=== PATIENT | female | born 1960 | race Caucasian/White ===

== ENCOUNTER 2016-12-14 21:14 | Emergency (ER) ==
[2016-12-14 21:21] VITALS: BP 144/83; TEMP 102.7; BMI 28.9
--- NOTE | 2016-12-14 21:26 | ED.PDOC ---
General ED Provider: Dr. NORIS CANTRELL Chief Complaint: Abdominal Pain Stated Complaint: Been hurting in the right side of the belly, has h/o kidney stones in the past. Time Seen by Physician: 21:25 Mode of Arrival: Walk-In Information Source: Patient, Family Primary Care Provider: NORIS CANTRELL[facility] Nursing and Triage Documentation Reviewed and Agree: Yes GI Complaint Exam - Abdominal Pain Complaint/Exam Onset: Gradual Symptoms Are: Still present Timing: Constant Initial Severity: Severe Current Severity: Severe Location of Pain: RLQ Radiates To: Reports: Flank Character: Reports: Aching, Throbbing Aggravating: Reports: Movement Alleviating: Reports: None Associated Signs and Symptoms: Reports: Back pain, Dysuria, Urinary frequency, Nausea. Denies: Diaphoresis, Fever, Cough, Chest pain, Dizziness, Constipation , Blood in stool, Decreased urine output, Decreased appetite, Vaginal bleeding, Vaginal discharge, Vomiting, Diarrhea, Sore throat, Decreased activity Related History: Reports: Similar episode AAA Risk Factors: Reports: None Cardiac Risk Factors: Reports: None Ectopic Risk Factors: Reports: None Ovarian Torsion Risk Factors: Reports: None Surgical Obstruction Risk Factors: Reports: None Related Surgical History: Reports: None Patient Rh Status: Unknown Abdominal Findings: Present: CVA Tenderness. Absent: Pulsatile mass, Abdominal distention, Unequal femoral pulses, Rebound tenderness Differential Diagnoses: Renal Colic, Ureteral Stone, UTI Review of Systems - Review Of Systems Constitutional: Reports: No symptoms Eyes: Reports: No symptoms Ears, Nose, Mouth, Throat: Reports: No symptoms Respiratory: Reports: No symptoms Cardiac: Reports: No symptoms GI: Reports: Abdominal pain : Reports: Dysuria, Frequency Musculoskeletal: Reports: No symptoms Skin: Reports: No symptoms Neurological: Reports: No symptoms Endocrine: Reports: No symptoms Hematologic/Lymphatic: Reports: No symptoms All Other Systems: Reviewed and Negative Past Medical History - Past Medical History Previously Healthy: No Endocrine: Reports: Dyslipidemia Cardiovascular: Reports: Hypertension Respiratory: Reports: None Hematological: Reports: None Gastrointestinal: Reports: None Genitourinary: Reports: None Neuro/Psych: Reports: None Musculoskeletal: Reports: None Cancer: Reports: None Last Menstrual Period: 2005 - Surgical History General Surgical History: Reports: Unknown - Family History Family History: Reports: Unknown - Social History Smoking Status: Current every day smoker, Heavy tobacco smoker Smoking Cessation Counseling Time: > 10 min Hx Substance Use: No Alcohol Screening: None - Immunizations Tetanus Shot up to Date: Yes Physical Exam - Physical Exam Appearance: Ill-appearing Eyes: EOMI ENT: Ears normal, Nose normal, Oropharynx normal Respiratory: Airway patent, Breath sounds clear, Breath sounds equal, Respirations nonlabored Cardiovascular: RRR, Pulses normal, No rub, No murmur GI/: Soft, Tender Musculoskeletal: Normal strength, ROM intact, No edema, No calf tenderness Skin: Warm, Dry, Normal color Neurological: Sensation intact, Motor intact, Reflexes intact, Cranial nerves intact, Alert, Oriented Psychiatric: Affect appropriate, Mood appropriate Interpretation - Radiology Interpretation Radiology Interpretation By: Radiologist Radiology Results: Negative Exam Interpreted: CT Scan Re-Evaluation - Re-Evaluation Time of Re-Evaluation: 23:13 Status: Improved Critical Care Note - Critical Care Note Total Time (mins): 30 Course - Course Hematology/Chemistry: 12/14/16 21:48 12/14/16 21:48 Orders, Labs, Meds: Lab Review 12/14/16 12/14/16 12/14/16 21:48 21:48 21:48 WBC 16.03 H RBC 5.18 Hgb 15.5 Hct 44.7 MCV 86.3 MCH 29.9 MCHC 34.7 RDW Coeff of Dipak 14.5 Plt Count 225 Immature Gran % (Auto) 0.6 Neut % (Auto) 83.4 Lymph % (Auto) 9.9 L Early % (Auto) 5.5 Eos % (Auto) 0.2 Baso % (Auto) 0.4 Immature Gran # (Auto) 0.1 Neut # 13.4 H Lymph # 1.6 Early # 0.9 Eos # 0.0 Baso # 0.1 Sodium 136 Potassium 3.8 Chloride 98 Carbon Dioxide 25 Anion Gap 16.8 BUN 11 Creatinine 1.00 Estimated GFR (MDRD) 57.00 BUN/Creatinine Ratio 11.00 Glucose 116 H Lactic Acid 14.6 Calcium 10.1 Total Bilirubin 0.49 AST 17 ALT 19 Alkaline Phosphatase 114 H Total Protein 7.9 Albumin 3.7 Globulin 4.2 Albumin/Globulin Ratio 0.88 Procalcitonin Urine Color Urine Clarity Urine pH Ur Specific [place] Urine Protein Urine Glucose (UA) Urine Ketones Urine Blood Urine Nitrite Urine Bilirubin Urine Urobilinogen Ur Leukocyte Esterase Urine Microscopic RBC Urine Microscopic WBC Ur Squamous Epith Cells Urine Bacteria Influenza A (Rapid) Influenza B (Rapid) 12/14/16 12/14/16 12/14/16 21:48 22:00 22:24 WBC RBC Hgb Hct MCV MCH MCHC RDW Coeff of Dipak Plt Count Immature Gran % (Auto) Neut % (Auto) Lymph % (Auto) Early % (Auto) Eos % (Auto) Baso % (Auto) Immature Gran # (Auto) Neut # Lymph # Early # Eos # Baso # Sodium Potassium Chloride Carbon Dioxide Anion Gap BUN Creatinine Estimated GFR (MDRD) BUN/Creatinine Ratio Glucose Lactic Acid Calcium Total Bilirubin AST ALT Alkaline Phosphatase Total Protein Albumin Globulin Albumin/Globulin Ratio Procalcitonin < 0.05 Urine Color Yellow Urine Clarity Clear Urine pH 7.0 Ur Specific [place] 1.015 Urine Protein Negative Urine Glucose (UA) Negative Urine Ketones Negative Urine Blood Trace-lysed Urine Nitrite Negative Urine Bilirubin Negative Urine Urobilinogen 1.0 Ur Leukocyte Esterase Negative Urine Microscopic RBC 5-10 Urine Microscopic WBC 0-2 Ur Squamous Epith Cells 0-2 Urine Bacteria 2+ Influenza A (Rapid) Negative Influenza B (Rapid) Negative Orders Category Date Time Status ED IV/MEDIPORT/POWERPORT .ONCE EMERGENCY 12/14/16 21:20 Active BLOOD CULTURE Stat LAB 12/14/16 21:48 Received CBC W/ AUTO DIFF Stat LAB 12/14/16 21:48 Completed COMPREHENSIVE METABOLIC PANEL Stat LAB 12/14/16 21:48 Completed LACTIC ACID Stat LAB 12/14/16 21:48 Completed PROCALCITONIN Stat LAB 12/14/16 21:48 Completed RAPID FLU A/B Stat LAB 12/14/16 22:24 Completed URINALYSIS C & S IF INDICATED Stat LAB 12/14/16 22:00 Completed URINE CULTURE Stat LAB 12/14/16 22:00 Received 0.9 % Sodium Chloride [Saline Flush] MEDS 12/14/16 21:20 Ordered 1 syr IVF PRN PRN Meperidine HCl/Pf [Demerol 25 mg/ml Syringe] MEDS 12/14/16 21:20 Discontinued 25 mg IVP ONCE STA Ondansetron HCl/Pf [Zofran 4 mg/2 ml] MEDS 12/14/16 21:20 Discontinued 4 mg IVP ONCE STA CT ABDOMEN/PELVIS WO CONTRAST Stat RADS 12/14/16 21:20 Completed Medications Generic Name Dose Route Start Last Admin Trade Name Freq PRN Reason Stop Dose Admin Sodium Chloride 1 syr 12/14/16 21:20 12/14/16 21:49 Saline Flush IVF 1 syr PRN PRN Administration To flush IV Discontinued Medications Generic Name Dose Route Start Last Admin Trade Name Freq PRN Reason Stop Dose Admin Meperidine HCl 25 mg 12/14/16 21:20 12/14/16 21:48 Demerol 25 Mg/Ml Syringe IVP 12/14/16 21:21 25 mg ONCE STA Administration Ondansetron HCl 4 mg 12/14/16 21:20 12/14/16 21:48 Zofran 4 Mg/2 Ml IVP 12/14/16 21:21 4 mg ONCE STA Administration Vital Signs: Temp Pulse Resp BP Pulse Ox 12/14/16 21:15 102.7 F H 129 H 22 144/83 H 93 L Departure - Departure Time of Disposition: 23:28 Disposition: HOME SELF-CARE Discharge Problem: Renal colic on right side, URTI (acute upper respiratory infection) Instructions: Upper Respiratory Infection (ED) Condition: Good Pt referred to PMD for follow-up: No Additional Instructions: Increase hydration Tylenol prn f/u RHC in 3-4 days Prescriptions: Cephalexin [Keflex] 500 mg PO Q12HR #20 capsule Prednisone 10 mg PO BIDWM #14 tablet Allergies/Adverse Reactions: Allergies No Known Allergies Allergy (Unverified 11/30/16 10:26) Home Medications: Ambulatory Orders Cephalexin [Keflex] 500 mg PO Q12HR #20 capsule 12/14/16 Prednisone 10 mg PO BIDWM #14 tablet 12/14/16 Disposition Discussed With: Patient, Family
[2016-12-14] MEDS: ZOFRAN 4 MG/2 ML IVP STA (21:48)
[2016-12-14] MEDS: DEMEROL 25 MG/ML SYRINGE IVP STA (21:48)
--- NOTE | 2016-12-14 21:50 | CT ---
Examination: CT abdomen and pelvis without contrast 12/14/2016 Clinical information: Right-sided abdominal pain. Comparison: 01/11/2016. MRI abdomen report 07/08/2015 TECHNIQUE: Noncontrast helical imaging from the lung bases to the symphysis pubis. 3 mm axial, sagi ttal and coronal images are submitted for review. FINDINGS: Axial images through the lung bases are unremarkable. There is a small hiatal hernia. Hy podense cysts within the left hepatic lobe are again noted. The noncontrast CT appearance of the spl een and pancreas within normal limits. There are cholecystectomy clips within the gallbladder fossa. There is a left adrenal adenoma. Noncontrast CT appearance of the right adrenal gland within mat l limits. There are bilateral renal cortical cysts. There is no hydronephrosis. There is bilateral nephrolithi asis. No obvious ureterolithiasis. There is diffuse atherosclerotic calcification of the abdominal aorta without aneurysmal dilatation. There is no bowel obstruction. Normal appendix is visualized. There is colonic diverticulosis without diverticulitis. No free fluid is seen within the abdomen or pelvis. There is no inflammatory fat stranding. Within the pelvis, uterus and ovaries are visualiz ed. Urinary bladder is partially collapsed. Lower lumbar hypertrophic facet arthropathy. Impression: 1. No CT evidence of acute disease within the abdomen or pelvis. 2. Small hiatal hernia. 3. Hepatic and renal cysts. 4. Bilateral nephrolithiasis. 5. ASVD. 6. Colonic diverticulosis. 7. Lower lumbar hypertrophic facet arthropathy. 8. Benign left adrenal adenoma.
[2016-12-14 21:51] LABS: BASOPHILS # (AUTO) 0.1 K/uL (0-0.2); BASOPHILS % (AUTO) 0.4 % (0.0-3.0); EOSINOPHILS % (AUTO) 0.2 % (0.0-7.0); HEMATOCRIT 44.7 % (37.0-47.0); HEMOGLOBIN 15.5 g/dl (12.0-16.0); IMMATURE GRANULOCYTE % (AUTO) 0.6 % (0.0-5.0); LYMPHOCYTES # (AUTO) 1.6 K/uL (0.60-3.4); LYMPHOCYTES % (AUTO) 9.9 (10.0-50.0); MEAN CORPUSCULAR HEMOGLOBIN 29.9 pg (27.0-31.0); MEAN CORPUSCULAR HGB CONC 34.7 (31.8-35.4); MEAN CORPUSCULAR VOLUME 86.3 fl (81.0-99.0); MONOCYTES # (AUTO) 0.9 K/uL (0.4-2.0); MONOCYTES % (AUTO) 5.5 (0-10); NEUTROPHILS # (AUTO) 13.4 K/ul (2.0-6.9); NEUTROPHILS % (AUTO) 83.4; PLATELET COUNT 225 10^3/uL (140-440); RED BLOOD COUNT 5.18 10^6/ul (4.20-5.40); WHITE BLOOD COUNT 16.03 K/ul (4.6-10.2)
[2016-12-14 22:12] LABS: ALBUMIN 3.7 g/dL (3.4-5.0); ALBUMIN/GLOBULIN RATIO 0.88; ANION GAP 16.8; BILIRUBIN,TOTAL 0.49 mg/dL (0.00-1.20); CALCIUM 10.1 mg/dL (8.2-10.2); POTASSIUM 3.8 mmol/L (3.5-5.10); TOTAL PROTEIN 7.9 g/dL (6.4-8.2)
[2016-12-14 22:31] LABS: BILIRUBIN,URINE Negative (NEGATIVE); KETONES,URINE Negative (NEGATIVE); LEUKOCYTE ESTERASE ,URINE Negative (NEGATIVE); NITRITE,URINE Negative (NEGATIVE); PROTEIN,URINE Negative (NEGATIVE); URINE, BLOOD Trace-lysed (NEGATIVE)
[2016-12-14 22:32] LABS: ADD URINE MICROSCOPIC YES
[2016-12-14 22:33] LABS: BACTERIA,URINE 2+ (NOT PRESENT)
[2016-12-14 22:46] LABS: FLU INTERNAL QC INTERNAL QC VALID; RAPID FLU A NEGATIVE (NEGATIVE); RAPID FLU B NEGATIVE (NEGATIVE)
[2016-12-14] MEDS: KEFLEX PO STA (23:32)
== END 2016-12-14 23:45 | disposition home or self-care (01) ==
LOC: ED 21:14
DX: J06.9 Acute upper respiratory infection, unspecified (principal); N23 Unspecified renal colic; Z87.442 Personal history of urinary calculi; F17.210 Nicotine dependence, cigarettes, uncomplicated
CPT/HCPCS: 36415; 80053; 81001; 83605; 84145; 85025; 87040; 87086; 87186; 87804; 96374; 96375; 99283

== ENCOUNTER 2017-01-30 13:00 | Outpatient (RCR) ==
--- NOTE | 2017-01-29 08:52 | RS.OPPTEV2 ---
Date of Note: 01/28/17 Visit #: 1 Date of Evaluation: 01/28/17 Payer Source: Insurance Treatment Diagnosis: Cervicalgia History of Condition/Mechanism of Injury:: Patient reports a history of neck pain. States it has progressively worsened. Prior Level of Function.....Patient was independent with: ADL's, Self Care, Caregiving, Ambulation/Mobility, Community Integration/Access Functional Limitations: Sleep, ADL's Current Subjective/complaints:: Patient reports having dull neck pain and daily headaches. States entire neck hurts. Reports tingling and numbness to bilateral elbows when driving. States doing laundry, washing dishes, and other household ADL's cause increased neck pain. Reports neck motion to her right is limited. States she goes to sleep with neck pain and wakes up with neck pain. States she also has problems with her middle and low back. 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 Medical History Surgical History: Cholecystectomy Smoking Status: Never smoker Patient's Goals: Her goal is to get relief of headaches and neck pain. Pain Assessment - Pain Description Pain Location: neck Pain Description: Dull Current Pain Intensity: 3/10 Worst Pain Intensity: 8/10 Functional Outcome Measure Neck Disability Index: 40 - G Codes & Severity Modifier G Codes & Modifier: NA Source of G Code score: NA Observation - Observation Posture: Forward Head, Rounded Shoulders, Posterior Pelvic Tilt Handedness: Right - ROM Comments: Cervical flexion is WNL's. Patient reports feeling tightness at end range. Cervical extension is ~50% of normal range. Rotation left is WFL's. Rotation right is ~75% of normal range. Bilateral UE AROM is WFL's. - Strength Comments: Bilateral UE strength 5/5. - Special Tests Thoracic Outlet Test: Negative Left, Negative Right Soda Room Operator Strength Left Hand Soda Room Operator Strength: 42 lbs. Right Hand Soda Room Operator Strength: 53 lbs. Dynamometer Testing Position: 2nd Position Palpation Comments:: Patient demonstrates moderate increased muscle tone along bilateral upper traps and cervical paraspinals. Also demonstrates moderate increased muscle tone at the suboccipital muscles. Sensation - Sensation Right Upper Extremity: Intact/Normal Left Upper Extremity: Intact/Normal - Heat/Cryotherapy Treatment: Hot Pack (X 15 mins prior to traction) - Traction Treatment Method: Mechanical, Intermittent, Cervical Patient Position: Supine Amount of Force Applied: 17-18 lbs. Hold Time: 30 sec Rest Time: 5 sec Duration of treatment: 10 mins Interventions - Exercise/Activities/Manual Therapy Exercises/Activities: Patient instructed in stretching of cervical rotation and lateral flexion. Also instructed in corner stretch (pec major) stretch. Manual Therapy: NA HOME EXERCISE PROGRAM: stretching of cervical rotation and lateral flexion. Also instructed in corner stretch (pec major) stretch. - Charges Total Direct Minutes: 35 mins Total Treatment Time: 60 mins Procedures billed for this date of service:: ACE Smith, mechanical traction Assessment Assessment: Patient presents to therapy with a diagnosis of cervicalgia. She reports progressively worsening neck pain and headaches. Reports household ADL' s are difficult due to neck pain. Driving also bothers her neck and causes UE tingling/numbnes. She demonstrates limited right cervical rotation and moderate increased muscle tone throughout bilateral upper traps, cervical paraspinals, and suboccipital area. She demonstrates good potential to benefit from modalities, including cervical traction, to reduce her symptoms. She will also benefit from postural strengthening and education. Patient Education: Education of diagnosis, Body/Joint mechanics, Home Exercise Program, Activity Modification, Education of Plan of Care Rehab Potential: Good Short Term Goals Goal #1: Muscle tone along bilateral upper traps decreased to minimal. Goal to be met by: 02/11/17 Goal #2: Right cervical rotation WFL's. Goal to be met by: 02/11/17 Goal #3: Pt independent and compliant with initial HEP. Goal to be met by: 02/11/17 Goal #4: Pt to demonstrate good postural awareness. Goal to be met by: 02/11/17 Vocational Director Goals Goal #1: Pt knows HEP and to continue ex's to maintain functional level at D/C. Goal to be met by: 03/14/17 Goal #2: Score on Neck Disability Index improved to 20. Goal to be met by: 03/14/17 Goal #3: Headache frequency decreased to less than once a week. Goal to be met by: 03/14/17 Goal #4: Pt able to fold laundry and other household ADL's, with minimal neck pain. Goal to be met by: 03/14/17 Plan - Treatment to be Provided Procedures: Therapeutic Exercises, Therapeutic Activity, Manual Therapy, Patient Education Modalities: Electrical Stimulation, Ultrasound/Phonophoresis, Cryotherapy, Hot Packs, Mechanical Traction (cervical traction) - Treatment Plan Frequency: 2 X week Duration: 6 weeks ORDER # VISITS AND/OR THROUGH DATE: 03/14/17 - Treatment Code (1) Cervicalgia Code(s): M54.2 - CERVICALGIA Comments: M54.2
--- NOTE | 2017-01-30 14:31 | RS.OPPTDN ---
Subjective Date of Note: 01/30/17 Visit #: 2 Date of Evaluation: 01/28/17 Payer Source: Insurance Treatment Diagnosis: Cervicalgia Current Subjective/complaints:: Patient reports first treatment of traction helped reduce neck pain but aggravated upper and mid back pain. Pain Assessment - Pain Description Pain Location: neck and upper back Pain Description: Aching Current Pain Intensity: mild to mod - Heat/Cryotherapy Treatment: Hot Pack ([id number] to neck and upper back prior to TX and EX. Patient in sitting. ) - Traction Treatment Method: Mechanical, Intermittent, Cervical Patient Position: Supine Amount of Force Applied: 17-18# Hold Time: 30sec Rest Time: 5sec Duration of treatment: 15mins Interventions - Exercise/Activities/Manual Therapy Exercises/Activities: Assisted stretching into cervical lateral flexion and gentle rotation. Increased to 3 position doorway anterior chest stretch. Began isometric cervical retraction at wall with towel roll. Total minutes of Exercise: 14mins Manual Therapy: NA HOME EXERCISE PROGRAM: stretching of cervical rotation and lateral flexion. Also instructed in corner stretch (pec major) stretch, increased to 3 positions. Isometric cervical retraction. - Charges Total Direct Minutes: 14mins Total Treatment Time: 50mins Procedures billed for this date of service:: HP, [place] mechanical, EX Assessment: Patient responding to traction and appears motivated to work on HEP. Patient Education: Home Exercise Program, Activity Modification Patient demonstrates compliance with HEP?: Yes Short Term Goals Goal #1: Muscle tone along bilateral upper traps decreased to minimal. Goal to be met by: 02/11/17 Progress towards Goal:: Progressing Goal #2: Right cervical rotation WFL's. Goal to be met by: 02/11/17 Goal #3: Pt independent and compliant with initial HEP. Goal to be met by: 02/11/17 Progress towards Goal:: Progressing Goal #4: Pt to demonstrate good postural awareness. Goal to be met by: 02/11/17 Mcc Goals Goal #1: Pt knows HEP and to continue ex's to maintain functional level at D/C. Goal to be met by: 03/14/17 Goal #2: Score on Neck Disability Index improved to 20. Goal to be met by: 03/14/17 Goal #3: Headache frequency decreased to less than once a week. Goal to be met by: 03/14/17 Goal #4: Pt able to fold laundry and other household ADL's, with minimal neck pain. Goal to be met by: 03/14/17 Plan PLAN OF CARE EXPIRES ON:: 03/14/17 ORDER # VISITS AND/OR THROUGH DATE: 03/14/17 PLAN: Continue progression of cervical traction and postural strengthening exercise to reduce pain and increase functional activity level.
== END 2017-01-31 ==
DX: M54.2 Cervicalgia (principal)

== ENCOUNTER 2017-02-28 13:00 | Outpatient (RCR) ==
[2017-01-11 09:03] VITALS: BMI 28.9
--- NOTE | 2017-02-04 14:56 | RS.OPPTDN ---
Subjective Date of Note: 02/04/17 Visit #: 3 Date of Evaluation: 01/28/17 Payer Source: Insurance Treatment Diagnosis: Cervicalgia Current Subjective/complaints:: Patient reports last treatment of cervical traction has helped reduce her pain. States she is workinng on HEP. Pain Assessment - Pain Description Pain Location: neck Current Pain Intensity: mild, no pain after traction - Heat/Cryotherapy Treatment: Hot Pack ([id number] to neck and upper/mid back prior to cervical traction. Patient in sitting. ) - Traction Treatment Method: Mechanical, Intermittent, Cervical Patient Position: Supine Amount of Force Applied: 18-20# Hold Time: 30sec Rest Time: 5sec Duration of treatment: 20mins Interventions - Exercise/Activities/Manual Therapy Exercises/Activities: Discussed HEP. No new additions today. Total minutes of Exercise: 5mins Manual Therapy: NA HOME EXERCISE PROGRAM: stretching of cervical rotation and lateral flexion. Also instructed in corner stretch (pec major) stretch, increased to 3 positions. Isometric cervical retraction. - Charges Timed Code Treatment Minutes: 5mins Total Treatment Time: 45mins Procedures billed for this date of service:: HP, [place] mechanical Assessment: Patient responding well to cervical traction. Will need to progress postural strengthening exercises. Patient Education: Home Exercise Program Patient demonstrates compliance with HEP?: Yes Short Term Goals Goal #1: Muscle tone along bilateral upper traps decreased to minimal. Goal to be met by: 02/11/17 Progress towards Goal:: Progressing Goal #2: Right cervical rotation WFL's. Goal to be met by: 02/11/17 Progress towards Goal:: Progressing Goal #3: Pt independent and compliant with initial HEP. Goal to be met by: 02/11/17 Progress towards Goal:: Progressing Goal #4: Pt to demonstrate good postural awareness. Goal to be met by: 02/11/17 Progress towards Goal:: Progressing Toll Settlement Clerk Goals Goal #1: Pt knows HEP and to continue ex's to maintain functional level at D/C. Goal to be met by: 03/14/17 Goal #2: Score on Neck Disability Index improved to 20. Goal to be met by: 03/14/17 Goal #3: Headache frequency decreased to less than once a week. Goal to be met by: 03/14/17 Progress towards goal: Progressing Goal #4: Pt able to fold laundry and other household ADL's, with minimal neck pain. Goal to be met by: 03/14/17 Plan PLAN OF CARE EXPIRES ON:: 03/14/17 ORDER # VISITS AND/OR THROUGH DATE: 03/14/17 PLAN: Continue progression of cervical traction and postural strengthening exercises to reduce pain and increase functional activity level.
--- NOTE | 2017-02-06 15:01 | RS.OPPTDN ---
Subjective Date of Note: 02/06/17 Visit #: 4 Date of Evaluation: 01/28/17 Payer Source: Insurance Treatment Diagnosis: Cervicalgia Current Subjective/complaints:: Patient reports traction continues to help with neck pain and headaches. States she is working on HEP as instructed and able to do more light daily activities without increased pain. Pain Assessment - Pain Description Pain Location: Neck Current Pain Intensity: mild - Heat/Cryotherapy Treatment: Hot Pack ([id number] to neck and mid to upper back prior to TX and EX. Patient in sitting. ) - Traction Treatment Method: Mechanical, Intermittent, Cervical Patient Position: Supine Amount of Force Applied: 20-21# Hold Time: 30sec Rest Time: 5sec Duration of treatment: 20mins Interventions - Exercise/Activities/Manual Therapy Exercises/Activities: Assisted stretching of cervical lateral flexion, forward flexion, and levator scapula. Scapular retraction and shoulder shrugs. Isometric cervical retraction. Green theraband for scapular retraction. At wall , isometric cervical retraction and wall angels. Doorway/anterior chest stretching, 3 position. Discussed safety and postural correction. Total minutes of Exercise: 15mins Manual Therapy: NA HOME EXERCISE PROGRAM: stretching of cervical rotation and lateral flexion. Also instructed in corner stretch (pec major) stretch, increased to 3 positions. Isometric cervical retraction. - Charges Timed Code Treatment Minutes: 15mins Total Treatment Time: 55mins Procedures billed for this date of service:: HP, [place] mechanical, EX Assessment: Patient responding well to treatment with reports of reduction in pain and increase in functional activities. Patient Education: Body/Joint mechanics, Home Exercise Program, Home Safety, Activity Modification Patient demonstrates compliance with HEP?: Yes Short Term Goals Goal #1: Muscle tone along bilateral upper traps decreased to minimal. Goal to be met by: 02/11/17 Progress towards Goal:: Progressing Goal #2: Right cervical rotation WFL's. Goal to be met by: 02/11/17 Progress towards Goal:: Progressing Goal #3: Pt independent and compliant with initial HEP. Goal to be met by: 02/11/17 Progress towards Goal:: Met Goal #4: Pt to demonstrate good postural awareness. Goal to be met by: 02/11/17 Progress towards Goal:: Partially Met Lead Injection Mold Technician Goals Goal #1: Pt knows HEP and to continue ex's to maintain functional level at D/C. Goal to be met by: 03/14/17 Progress towards goal: Progressing Goal #2: Score on Neck Disability Index improved to 20. Goal to be met by: 03/14/17 Goal #3: Headache frequency decreased to less than once a week. Goal to be met by: 03/14/17 Progress towards goal: Progressing Goal #4: Pt able to fold laundry and other household ADL's, with minimal neck pain. Goal to be met by: 03/14/17 Progress towards goal: Progressing Plan PLAN OF CARE EXPIRES ON:: 03/14/17 ORDER # VISITS AND/OR THROUGH DATE: 03/14/17 PLAN: Continue progression of traction and postural correction exercises to reduce pain and increase functional activity level.
--- NOTE | 2017-02-11 16:23 | RS.OPPTDN ---
Subjective Date of Note: 02/11/17 Visit #: 5 Date of Evaluation: 01/28/17 Payer Source: Insurance Treatment Diagnosis: Cervicalgia Current Subjective/complaints:: Patient reports traction continues to help her. She reports pain is mainly at the occipit and she has not had headaches or right UE radicular symptoms in a week. Pain Assessment - Pain Description Pain Description: Aching - Heat/Cryotherapy Treatment: Hot Pack ([id number] prior to and 10mins following TX, to the cervical spine and with mid to upper back prior to TX. Patient in sitting. ) - Traction Treatment Method: Mechanical, Intermittent, Cervical Patient Position: Supine Amount of Force Applied: 22-23# Hold Time: 30sec Rest Time: 5sec Duration of treatment: 20mins Interventions - Exercise/Activities/Manual Therapy Exercises/Activities: Assisted stretching of cervical lateral flexion, forward flexion, and levator scapula. Scapular retraction and shoulder shrugs. Isometric cervical retraction, 4s/5reps. Green theraband for scapular retraction , 2s/10reps. Modified wall angels with manual assist. Discussed HEP and postural correction. Patient given green theraband for scap retraction in HEP. Total minutes of Exercise: 15mins Manual Therapy: NA HOME EXERCISE PROGRAM: stretching of cervical rotation and lateral flexion. Also instructed in corner stretch (pec major) stretch, increased to 3 positions. Isometric cervical retraction. Green theraband for scap retraction. - Charges Timed Code Treatment Minutes: 15mins Total Treatment Time: 60mins Procedures billed for this date of service:: HP, TX mechanical, EX Assessment: Patient continues to progress with reports of reduction in pain, headaches, and radicular symptoms. Patient Education: Body/Joint mechanics, Home Exercise Program, Activity Modification Patient demonstrates compliance with HEP?: Yes Short Term Goals Goal #1: Muscle tone along bilateral upper traps decreased to minimal. Goal to be met by: 02/11/17 Progress towards Goal:: Progressing Goal #2: Right cervical rotation WFL's. Goal to be met by: 02/11/17 Progress towards Goal:: Progressing Goal #3: Pt independent and compliant with initial HEP. Goal to be met by: 02/11/17 Progress towards Goal:: Met Goal #4: Pt to demonstrate good postural awareness. Goal to be met by: 02/11/17 Progress towards Goal:: Partially Met Protection Agent Goals Goal #1: Pt knows HEP and to continue ex's to maintain functional level at D/C. Goal to be met by: 03/14/17 Progress towards goal: Progressing Goal #2: Score on Neck Disability Index improved to 20. Goal to be met by: 03/14/17 Goal #3: Headache frequency decreased to less than once a week. Goal to be met by: 03/14/17 Progress towards goal: Met Goal #4: Pt able to fold laundry and other household ADL's, with minimal neck pain. Goal to be met by: 03/14/17 Progress towards goal: Progressing Plan PLAN OF CARE EXPIRES ON:: 03/14/17 ORDER # VISITS AND/OR THROUGH DATE: 03/14/17 PLAN: Continue traction and progress postural and upper body strengthening to increase patients functional activity level.
--- NOTE | 2017-02-13 14:22 | RS.OPPTDN ---
Subjective Date of Note: 02/13/17 Visit #: 6 Date of Evaluation: 01/28/17 Payer Source: Insurance Treatment Diagnosis: Cervicalgia Current Subjective/complaints:: Patient reports no headaches this week and upper trap pain continues to be better. Pain Assessment - Pain Description Pain Location: neck, bilateral traps Pain Description: Aching Current Pain Intensity: 2-3/10 upper cervical and right mid traps - Heat/Cryotherapy Treatment: Hot Pack ([id number] to the cervical spine and mid to upper back prior to traction. Patient in sitting. ) - Traction Treatment Method: Mechanical, Intermittent, Cervical Patient Position: Supine Amount of Force Applied: 22-23# Hold Time: 30sec Rest Time: 5sec Duration of treatment: 20mins Interventions - Exercise/Activities/Manual Therapy Exercises/Activities: Assisted stretching of cervical lateral flexion, forward flexion, rotation, and levator scapula. Scapular retraction and shoulder shrugs. Isometric cervical retraction. Green theraband for scapular retraction, 2s/10reps. Wall angels. 3# wand for resistive bilateral shoulder flexion at wall. Ended with doorway stretch, 3 positions. Total minutes of Exercise: 15mins Manual Therapy: NA HOME EXERCISE PROGRAM: stretching of cervical rotation and lateral flexion. Also instructed in corner stretch (pec major) stretch, increased to 3 positions. Isometric cervical retraction. Green theraband for scap retraction. Wall angels. - Charges Timed Code Treatment Minutes: 15mins Total Treatment Time: 55mins Procedures billed for this date of service:: HP, TX mechanical, EX Assessment: Patient responding well to traction with reports of reduction in pain, headaches, and radicular symptoms. She appears to be working on HEP and will need to continue progression of postural strengthening. Patient Education: Home Exercise Program, Activity Modification Patient demonstrates compliance with HEP?: Yes Short Term Goals Goal #1: Muscle tone along bilateral upper traps decreased to minimal. Goal to be met by: 02/11/17 Progress towards Goal:: Progressing Goal #2: Right cervical rotation WFL's. Goal to be met by: 02/11/17 Progress towards Goal:: Met Goal #3: Pt independent and compliant with initial HEP. Goal to be met by: 02/11/17 Progress towards Goal:: Met Goal #4: Pt to demonstrate good postural awareness. Goal to be met by: 02/11/17 Progress towards Goal:: Partially Met Care Home Goals Goal #1: Pt knows HEP and to continue ex's to maintain functional level at D/C. Goal to be met by: 03/14/17 Progress towards goal: Progressing Goal #2: Score on Neck Disability Index improved to 20. Goal to be met by: 03/14/17 Goal #3: Headache frequency decreased to less than once a week. Goal to be met by: 03/14/17 Progress towards goal: Met Goal #4: Pt able to fold laundry and other household ADL's, with minimal neck pain. Goal to be met by: 03/14/17 Progress towards goal: Progressing Plan PLAN OF CARE EXPIRES ON:: 03/14/17 ORDER # VISITS AND/OR THROUGH DATE: 03/14/17 PLAN: Continue traction and progressive postural strengthening exercise to reduce pain and increase functional activity level.
--- NOTE | 2017-02-18 16:03 | RS.CXNS ---
Date of scheduled appointment: 02/18/17 Type: Cancel (Patient calls to cancel appointment today due to a family issue. Patient will attend next session.)
--- NOTE | 2017-02-21 15:20 | RS.OPPTDN ---
Subjective Date of Note: 02/21/17 Visit #: 7 Date of Evaluation: 01/28/17 Payer Source: Insurance Treatment Diagnosis: Cervicalgia Current Subjective/complaints:: Patient reports having a mild headache once this week but feels it is due to sleeping wrong. States that overall her pain is down to minimal. Pain Assessment - Pain Description Pain Location: Upper cervical paraspinals Pain Description: Dull, Aching Current Pain Intensity: mild - Heat/Cryotherapy Treatment: Hot Pack ([id number] to the cervical paraspinals prior to TX) - Traction Treatment Method: Mechanical, Intermittent, Cervical Patient Position: Supine Amount of Force Applied: 23# Hold Time: 30sec Rest Time: 5sec Duration of treatment: 20mins Interventions - Exercise/Activities/Manual Therapy Exercises/Activities: Scapular retraction and shoulder shrugs. Wall angels. Began wall push ups. Isometric cervical retraction. Green theraband for scapular retraction, 2s/10reps. Doorway stretch, 3 positions. Ended with isometric cervical retraction at wall with towel roll. Total minutes of Exercise: 15mins Manual Therapy: NA HOME EXERCISE PROGRAM: stretching of cervical rotation and lateral flexion. Also instructed in corner stretch (pec major) stretch, increased to 3 positions. Isometric cervical retraction. Green theraband for scap retraction. Wall angels. - Charges Timed Code Treatment Minutes: 15mins Total Treatment Time: 55mins Procedures billed for this date of service:: HP, TX mechanical, EX Assessment: Patient continues to report progress with reduction in pain and headaches. Patient Education: Home Exercise Program Patient demonstrates compliance with HEP?: Yes Short Term Goals Goal #1: Muscle tone along bilateral upper traps decreased to minimal. Goal to be met by: 02/11/17 Progress towards Goal:: Progressing Goal #2: Right cervical rotation WFL's. Goal to be met by: 02/11/17 Progress towards Goal:: Met Goal #3: Pt independent and compliant with initial HEP. Goal to be met by: 02/11/17 Progress towards Goal:: Met Goal #4: Pt to demonstrate good postural awareness. Goal to be met by: 02/11/17 Progress towards Goal:: Partially Met [place] Tug Captain Goals Goal #1: Pt knows HEP and to continue ex's to maintain functional level at D/C. Goal to be met by: 03/14/17 Progress towards goal: Progressing Goal #2: Score on Neck Disability Index improved to 20. Goal to be met by: 03/14/17 Goal #3: Headache frequency decreased to less than once a week. Goal to be met by: 03/14/17 Progress towards goal: Met Goal #4: Pt able to fold laundry and other household ADL's, with minimal neck pain. Goal to be met by: 03/14/17 Progress towards goal: Progressing Plan PLAN OF CARE EXPIRES ON:: 03/14/17 ORDER # VISITS AND/OR THROUGH DATE: 03/14/17 PLAN: Progress with postural strengthening to reduce pain and increase functional activity level.
--- NOTE | 2017-02-26 13:55 | RS.OPPTDN ---
Subjective Date of Note: 02/26/17 Visit #: 8 Date of Evaluation: 01/28/17 Payer Source: Insurance Treatment Diagnosis: Cervicalgia Current Subjective/complaints:: Patient reports having a headache more than neck pain today. Pain Assessment - Pain Description Pain Location: headache Pain Description: Aching Current Pain Intensity: 5-6 - Heat/Cryotherapy Treatment: Hot Pack (15 mins. prior to ex and traction) - Traction Treatment Method: Mechanical, Intermittent, Cervical Patient Position: Supine Amount of Force Applied: 24# Hold Time: 30 secs. Rest Time: 5 secs. Duration of treatment: 20 Traction Treatment Comment: Tolerates well. Interventions - Exercise/Activities/Manual Therapy Exercises/Activities: Scapular retraction and shoulder shrugs. Wall angels. Began wall push ups. Isometric cervical retraction. 2s/10reps. Doorway stretch, 3 positions. Ended with isometric cervical retraction at wall with towel roll. Seated AROM for cervical rotation ,lateral flexion. Total minutes of Exercise: 15 Manual Therapy: NA Total minutes of Manual Therapy: 0 HOME EXERCISE PROGRAM: stretching of cervical rotation and lateral flexion. Also instructed in corner stretch (pec major) stretch, increased to 3 positions. Isometric cervical retraction. Green theraband for scap retraction. Wall angels. - Charges Timed Code Treatment Minutes: 35 Total Treatment Time: 50 Procedures billed for this date of service:: hp,ex,traction Assessment: Patient has decreased cervical rotation and lateral flexion to the L , as compared to the R.She has good return demo of each exercise,reports stretch discomfort only,no sharp pain. Patient Education: Body/Joint mechanics, Home Exercise Program, Activity Modification Patient demonstrates compliance with HEP?: Yes Short Term Goals Goal #1: Muscle tone along bilateral upper traps decreased to minimal. Goal to be met by: 02/11/17 Progress towards Goal:: Progressing Goal #2: Right cervical rotation WFL's. Goal to be met by: 02/11/17 Progress towards Goal:: Met Goal #3: Pt independent and compliant with initial HEP. Goal to be met by: 02/11/17 Progress towards Goal:: Met Goal #4: Pt to demonstrate good postural awareness. Goal to be met by: 02/11/17 Progress towards Goal:: Partially Met Insurance Claims Supervisor Goals Goal #1: Pt knows HEP and to continue ex's to maintain functional level at D/C. Goal to be met by: 03/14/17 Progress towards goal: Progressing Goal #2: Score on Neck Disability Index improved to 20. Goal to be met by: 03/14/17 Goal #3: Headache frequency decreased to less than once a week. Goal to be met by: 03/14/17 Progress towards goal: Met Goal #4: Pt able to fold laundry and other household ADL's, with minimal neck pain. Goal to be met by: 03/14/17 Progress towards goal: Progressing Plan PLAN OF CARE EXPIRES ON:: 03/14/17 ORDER # VISITS AND/OR THROUGH DATE: 03/14/17 PLAN: Continue PT to improve cervical ROM ,decrease pain while doing ADL's.
--- NOTE | 2017-02-28 14:46 | RS.OPPTDN ---
Subjective Date of Note: 02/28/17 Visit #: 9 Date of Evaluation: 01/28/17 Payer Source: Insurance Treatment Diagnosis: Cervicalgia Current Subjective/complaints:: Patient reports she is pleased with progress. States neck pain and headaches have resolved. She reports mild muscle tension, but she is able to perform all ADL's as needed. States she is working on HEP and will continue to do so. Pain Assessment - Pain Description Pain Location: neck Current Pain Intensity: mild, no discomfort after treatment Other Comments regarding Pain:: Reports little to no discomfort with most daily activities. - Heat/Cryotherapy Treatment: Hot Pack ([id number] to the cervical paraspinals prior to cervical traction. Patient in sitting. ) - Traction Treatment Method: Mechanical, Intermittent, Cervical Patient Position: Sitting Amount of Force Applied: 23-24# Hold Time: 30sec Rest Time: 5sec Duration of treatment: 20mins Interventions - Exercise/Activities/Manual Therapy Exercises/Activities: Discussion of HEP. Patient will continue following discharge. Total minutes of Exercise: 5mins Manual Therapy: NA HOME EXERCISE PROGRAM: stretching of cervical rotation and lateral flexion. Also instructed in corner stretch (pec major) stretch, increased to 3 positions. Isometric cervical retraction. Green theraband for scap retraction. Wall angels. - Charges Timed Code Treatment Minutes: 5mins Total Treatment Time: 45mins Procedures billed for this date of service:: HP, [place] mechanical Assessment: Patient has progressed well and benefitted from treatment. She reports min to no pain with daily activities, and no recent headaches. She reports she is working on HEP and will continue following discharge. Patient Education: Home Exercise Program, Home Safety, Education of Plan of Care Patient demonstrates compliance with HEP?: Yes Short Term Goals Goal #1: Muscle tone along bilateral upper traps decreased to minimal. Goal to be met by: 02/11/17 Progress towards Goal:: Met Goal #2: Right cervical rotation WFL's. Goal to be met by: 02/11/17 Progress towards Goal:: Met Goal #3: Pt independent and compliant with initial HEP. Goal to be met by: 02/11/17 Progress towards Goal:: Met Goal #4: Pt to demonstrate good postural awareness. Goal to be met by: 02/11/17 Progress towards Goal:: Met Half-Way Goals Goal #1: Pt knows HEP and to continue ex's to maintain functional level at D/C. Goal to be met by: 03/14/17 Progress towards goal: Met Goal #2: Score on Neck Disability Index improved to 20. Goal to be met by: 03/14/17 Progress towards goal: Met Goal #3: Headache frequency decreased to less than once a week. Goal to be met by: 03/14/17 Progress towards goal: Met Goal #4: Pt able to fold laundry and other household ADL's, with minimal neck pain. Goal to be met by: 03/14/17 Progress towards goal: Met Plan PLAN OF CARE EXPIRES ON:: 03/14/17 ORDER # VISITS AND/OR THROUGH DATE: 03/14/17 PLAN: Discharge with HEP as patient has progressed well and met all goals.
--- NOTE | 2017-02-28 14:48 | RS.QUICKDC ---
Discharge from PT Date of Discharge: 02/28/17 Number of Visits: 9 Reason for Discharge: Patient progressed well and benefitted from treatment. She reported little to no pain and no headaches. She met all treatment goals and was independent with HEP. Discharged with HEP.
== END 2017-03-03 ==
DX: M54.2 Cervicalgia (principal)

== ENCOUNTER 2017-04-24 09:45 | Outpatient (CLI) ==
[2017-01-11 09:03] VITALS: BMI 28.9
--- NOTE | 2017-04-24 11:50 | MAMMO ---
EXAM: Bilateral digital screening mammogram (2-D and 3-D) History: Screening Comparison: Bilateral mammogram 07/01/2015 Findings: MLO and CC views of bilateral breasts demonstrate scattered fibroglandular breast parenchy ma. CAD was reviewed by the radiologist. Tomosynthesis was performed. There are no dominant masses , no suspicious microcalcifications and no architectural distortions. Stable benign appearing bilate ral nodular densities. Impression: Benign stable mammogram. Recommend followup routine screening mammography in 1 year. BIRADS 2
== END 2017-04-24 09:46 | disposition home or self-care (01) ==
LOC: RAD 09:45
PROVIDERS: ATTEND Emergency Medicine
DX: Z12.31 Encounter for screening mammogram for malignant neoplasm of breast (principal)
CPT/HCPCS: 77067

== ENCOUNTER 2017-05-01 11:53 | Outpatient (CLI) ==
[2017-01-11 09:03] VITALS: BMI 28.9
== END 2017-05-01 11:54 | disposition home or self-care (01) ==
LOC: RHC-LAB 11:53
PROVIDERS: ATTEND Nurse Practitioner Family
DX: E78.1 Pure hyperglyceridemia (principal); E78.5 Hyperlipidemia, unspecified; Z72.0 Tobacco use
CPT/HCPCS: 36415; 80053; 80061; 85025

== ENCOUNTER 2017-06-12 09:47 | Outpatient (CLI) | payer OTHER ==
[2017-01-11 09:03] VITALS: BMI 28.9
== END 2017-06-12 09:48 | disposition home or self-care (01) ==
LOC: RHC-LAB 09:47
PROVIDERS: ATTEND Nurse Practitioner Family
DX: E78.1 Pure hyperglyceridemia (principal); E78.5 Hyperlipidemia, unspecified
CPT/HCPCS: 36415; 80053; 80061